=== PATIENT | male | born 1935 | race Caucasian/White ===

== ENCOUNTER 2017-11-16 15:44 | Observation (INO) ==
--- NOTE | 2017-11-16 16:12 | Emergency Department Note ---
Disposition Clinical Impression: New onset atrial fibrillation, Vertigo Chronic kidney disease (CKD) Qualifiers: Chronic kidney disease stage: unspecified stage Qualified Code(s): N18.9 - Chronic kidney disease, unspecified Disposition: Admitted As Inpatient Condition: Good Referrals: Luis Medrano MD [Primary Care Provider] - Forms: ED Satisfaction Letter General Adult HPI - General Chief complaint: ED Dizziness Stated complaint: Lightheaded dizzy Time Seen by Provider: 11/16/17 15:49 Source: patient, EMS Mode of arrival: EMS Limitations: no limitations Nursing Notes Reviewed: Yes Vital Signs Reviewed: Yes - History of Present Illness HPI Narrative: 82-year-old white male who is brought to us by EMS today from a local bar after he experienced an acute onset of very intense vertigo or "room spinning" sensation that lasted approximately 5 minutes. Patient states that he has been managed over the past 6 weeks by his family doctor for the new diagnosis of vertigo and as an outpatient has had MRI imaging, CT imaging, and has been going to physical therapy as well as medications for the vertigo. Patient states he has been having these episodes intermittently that come on suddenly lasting anywhere from 3-5 minutes but they have never been so intense that he could not stand or walk. Patient actually brought a cane so he can have assistance with ambulation when these episodes occur at home to prevent a fall. Patient on arrival is in no acute distress, he is asymptomatic at this time, denies any complaints of associated headaches or visual changes, no focal extremity weakness or numbness, no history of falls trauma, no syncope, no chest pain pressure or heaviness, no shortness of breath, no recent fevers chills cold or cough, no other associated symptoms. Patient states he remained in the bar chair and held his head very still and asked someone to call the ambulance. Patient states by the time the squad arrived his dizziness had completely resolved and he has been asymptomatic since that time. Pain Scale: 0 - Related Data Allergies Allergy/AdvReac Type Severity Reaction Status Date / Time No Known Allergies Allergy Verified 11/16/17 15:55 All systems ED: reviewed and negative except as stated. Review of Systems: As Per HPI Past Medical History - Past Medical History Medical history: Reports: cancer, hyperlipidemia, hypertension, renal disease Psychiatric history: Reports: no psych history - Social History Smoking Status: Never smoker Alcohol use: Reports: occasionally Drug use: Reports: none Physical Exam - General Limitations: no limitations General appearance: alert, in no apparent distress - Head Head exam: atraumatic, normocephalic, normal inspection - Eye Eye exam: Present: normal appearance, PERRL, EOMI - ENT ENT exam: normal exam, normal oropharynx, mucous membranes moist - Neck Neck exam: Present: normal inspection - Chest Chest inspection: Present: normal inspection, symmetric chest wall rise - Respiratory Respiratory exam: Present: normal lung sounds bilaterally. Absent: respiratory distress, wheezes, stridor - Cardiovascular Cardiovascular exam: Present: regular rate, normal rhythm, normal heart sounds - Abdominal Exam Abdominal exam: Present: soft, Non-Tender, normal bowel sounds - Extremities Exam Extremities exam: Present: normal inspection, normal capillary refill. Absent: tenderness, calf tenderness - Back Exam Back exam: Present: normal inspection. Absent: tenderness, CVA tenderness (R), CVA tenderness (L), muscle spasm, paraspinal tenderness - Neurological Exam Neurological exam: Present: alert, oriented X3, CN II-XII intact, normal gait, reflexes normal, other (Focal neurologic deficits on examination. Finger to nose testing bilaterally intact, no pronator drift, strength is good 5 out of 5 equal bilateral upper and lower extremities.). Absent: motor sensory deficit - Psychiatric Psychiatric exam: Present: normal affect, normal mood - Skin Skin exam: Present: warm, dry, intact, normal color Course Course Narrative: Patient is a 82-year-old white male who is brought to us by EMS today for recurrent vertigo. Patient is being worked up by his family doctor and has been experiencing this reportedly for the past 3-4 months it has been worse over the past 6 weeks. Patient states medicine for the vertigo does not help and he now ambulates with a cane at home to prevent falls for when he has these episodes. Patient's episode he experienced a bar prior to arrival has completely resolved and has not recurred during his ED course. Patient has been resting comfortably with stable vital signs at bedside throughout ED course he had no recurrence of dizziness no vomiting no other associated symptoms. Patient's workup up to this point with the exception of his EKG is unremarkable. Patient's EKG shows atrial fibrillation which patient denies any prior history of nasal never had any cardiac evaluation. Patient is on any heart medications no anticoagulants. Patient's daughter was at bedside later on during the ED course and she confirms this as well and states he has never had any heart issues. Patient's lab evaluation, chest x-ray, and CT head are all unremarkable. Patient does have a mild elevation in his serum creatinine which is chronic for him he does see a diesel mechanic construction he states once year for "chronic kidney disease" . Patient has no history her records in our system for reference. His blood pressure has remained stable and clinically I suspect that he is having paroxysmal A. fib which is causing his lightheadedness and dizziness episodes. I feel patient would benefit from hospitalization and seen by cardiology for workup for new onset A. fib. Patient is agreeable with this plan , discussed with the hospitalist who accepted the patient for admission. Vital Signs Temperature 97.9 F 11/16/17 15:53 Pulse Rate 107 11/16/17 15:53 Respiratory Rate 16 11/16/17 15:53 Blood Pressure 153/95 11/16/17 15:53 O2 Sat by Pulse Oximetry 96 11/16/17 15:53 Temperature 97.9 F 11/16/17 15:53 Pulse Rate 88 11/16/17 17:46 Respiratory Rate 18 11/16/17 17:46 Blood Pressure 134/86 11/16/17 17:46 O2 Sat by Pulse Oximetry 99 11/16/17 16:15 Oxygen Delivery Oxygen Delivery Room Air Medical Decision Making - Medical Records Medical records reviewed: Yes I reviewed the patient's medical records. - Lab Data Lab results reviewed: Yes I reviewed the patient's lab results. Result diagrams: 11/16/17 16:40 11/16/17 16:40 Lab Results 11/16/17 11/16/17 11/16/17 Range/Units 16:34 16:40 16:40 WBC 6.6 (4.3-11.1) K/mcL RBC 4.72 (4.19-5.50) M/mcL Hgb 15.3 (12.9-16.9) g/dL Hct 44.9 (37.5-50.1) % MCV 95.1 (83.0-100.0) fL MCH 32.4 (28.0-33.3) pg MCHC 34.1 (31.6-35.5) g/dL RDW 12.9 (11.5-14.5) % Plt Count 169 (140-400) K/mcL MPV 10.3 (9.4-12.4) fL Immature Gran % 0.3 (0-4) % Seg Neutrophils % 70.1 % Lymphocytes % 17.2 % Monocytes % 10.3 % Eosinophils % 1.5 % Basophils % 0.6 % Neutrophils # 4.6 (1.6-8.9) K/mcL Lymphocytes # 1.1 (0.6-4.6) K/mcL Monocytes # 0.7 (0.0-1.3) K/mcL Eosinophils # 0.1 (0.0-0.6) K/mcL Basophils # 0.0 (0.0-0.2) K/mcL PT (9.4-12.1) Seconds INR APTT (26.0-36.0) Seconds Sodium 135 L (136-145) mEq/L Potassium 3.9 (3.5-5.1) mEq/L Chloride 107 (98-107) mEq/L Carbon Dioxide 22 L (23-29) mEq/L BUN 20 (8-23) mg/dL Creatinine 1.52 H (0.70-1.30) mg/dL Est GFR ( Amer) 53 L (> 60) Est GFR (Non-Af Amer) 44 L (> 60) BUN/Creatinine Ratio 13 (6-26) Glucose 105 (70-105) mg/dL Calculated Osmolality 283 (280-300) Calcium 8.7 (8.6-10.3) mg/dL Magnesium 1.8 (1.6-2.6) mg/dL Total Bilirubin 0.5 (0.3-1.0) mg/dL AST 16 (13-39) Units/L ALT 17 (7-52) Units/L Alkaline Phosphatase 62 (34-104) Units/L Troponin I (< 0.04) ng/mL Serum Total Protein 6.5 (6.4-8.9) g/dL Albumin 3.8 (3.5-5.7) g/dL Globulin 2.7 (2.4-3.5) g/dL Albumin/Globulin Ratio 1.4 (1.1-2.2) TSH (0.340-5.600) mcIU/mL Urine Color Yellow (Yellow) Urine Clarity Clear (Clear) Urine pH 5.5 (5.0-8.0) pH Units Ur Specific [place] 1.024 (1.010-1.025) Urine Protein 30 H (Neg-Trace) mg/dL Urine Glucose (UA) Normal (Normal) mg/dL Urine Ketones Negative (Negative) mg/dL Urine Blood Trace H (Negative) Urine Nitrite Negative (Negative) Urine Bilirubin Negative (Negative) Urine Urobilinogen Normal (Normal) mg/dL Ur Leukocyte Esterase Negative (Negative) Urine Microscopic RBC 0-3 (0-3) per hpf Urine Microscopic WBC 0-3 (0-3) per hpf Ur Squamous Epith Cells Moderate H (None-Few) per lpf Urine Bacteria None Seen (None-Few) per hpf Hyaline Casts None Seen (None-Few) per lpf Ur Culture Indicated? NO (NO) 11/16/17 11/16/17 11/16/17 Range/Units 16:40 16:41 16:41 WBC (4.3-11.1) K/mcL RBC (4.19-5.50) M/mcL Hgb (12.9-16.9) g/dL Hct (37.5-50.1) % MCV (83.0-100.0) fL MCH (28.0-33.3) pg MCHC (31.6-35.5) g/dL RDW (11.5-14.5) % Plt Count (140-400) K/mcL MPV (9.4-12.4) fL Immature Gran % (0-4) % Seg Neutrophils % % Lymphocytes % % Monocytes % % Eosinophils % % Basophils % % Neutrophils # (1.6-8.9) K/mcL Lymphocytes # (0.6-4.6) K/mcL Monocytes # (0.0-1.3) K/mcL Eosinophils # (0.0-0.6) K/mcL Basophils # (0.0-0.2) K/mcL PT 11.3 (9.4-12.1) Seconds INR 1.1 APTT 27.0 (26.0-36.0) Seconds Sodium (136-145) mEq/L Potassium (3.5-5.1) mEq/L Chloride (98-107) mEq/L Carbon Dioxide (23-29) mEq/L BUN (8-23) mg/dL Creatinine (0.70-1.30) mg/dL Est GFR ( Amer) (> 60) Est GFR (Non-Af Amer) (> 60) BUN/Creatinine Ratio (6-26) Glucose (70-105) mg/dL Calculated Osmolality (280-300) Calcium (8.6-10.3) mg/dL Magnesium (1.6-2.6) mg/dL Total Bilirubin (0.3-1.0) mg/dL AST (13-39) Units/L ALT (7-52) Units/L Alkaline Phosphatase (34-104) Units/L Troponin I < 0.03 (< 0.04) ng/mL Serum Total Protein (6.4-8.9) g/dL Albumin (3.5-5.7) g/dL Globulin (2.4-3.5) g/dL Albumin/Globulin Ratio (1.1-2.2) TSH 1.372 (0.340-5.600) mcIU/mL Urine Color (Yellow) Urine Clarity (Clear) Urine pH (5.0-8.0) pH Units Ur Specific [place] (1.010-1.025) Urine Protein (Neg-Trace) mg/dL Urine Glucose (UA) (Normal) mg/dL Urine Ketones (Negative) mg/dL Urine Blood (Negative) Urine Nitrite (Negative) Urine Bilirubin (Negative) Urine Urobilinogen (Normal) mg/dL Ur Leukocyte Esterase (Negative) Urine Microscopic RBC (0-3) per hpf Urine Microscopic WBC (0-3) per hpf Ur Squamous Epith Cells (None-Few) per lpf Urine Bacteria (None-Few) per hpf Hyaline Casts (None-Few) per lpf Ur Culture Indicated? (NO) - EKG Data EKG #1 EKG attestation: Yes I reviewed and interpreted this EKG. EKG results narrative: EKG was interpreted by myself without benefit of formal cardiology interpretation showing atrial fibrillation that is rate controlled at a rate of 94 bpm, no acute ST or T-wave changes are appreciated. Patient has no old EKG for comparison.
[2017-11-16] MEDS ORDERED: 0.9 % Sodium Chloride 1,000 ML ONE (16:16)
[2017-11-16] MEDS: 0.9 % Sodium Chloride 1,000 ML IVC SCH ×2 (16:26→22:37)
[2017-11-16 16:47] LABS: Bilirubin,Urine Negative (Negative); Blood,Urine Trace (Negative); Clarity,Urine Clear (Clear); Color,Urine Yellow (Yellow); Glucose,Urine (UA) Normal (Normal); Ketones,Urine Negative (Negative); Leukocyte Esterase,Urine Negative (Negative); Nitrite,Urine Negative (Negative); PH,Urine 5.5 pH Units (5.0-8.0); Protein,Urine 30 mg/dL (Neg-Trace); Specific Gravity,Urine 1.024 (1.010-1.025); Urobilinogen,Urine Normal (Normal)
[2017-11-16 16:49] LABS: Bacteria,Urine None Seen per hpf (None-Few); Hyaline Casts,Urine None Seen per lpf (None-Few); RBC,Urine 0-3 per hpf (0-3); Squamous Epithelial Cell,Urine Moderate per lpf (None-Few); WBC,Urine 0-3 per hpf (0-3)
[2017-11-16 16:55] LABS: Basophils % 0.6 %; Eosinophils # 0.1 K/mcL (0.0-0.6); Eosinophils % 1.5 %; Hematocrit 44.9 % (37.5-50.1); Hemoglobin 15.3 g/dL (12.9-16.9); Immature Granulocytes % 0.3 % (0-4); Lymphocytes # 1.1 K/mcL (0.6-4.6); Lymphocytes % 17.2 %; Mean Corpuscular HGB Conc 34.1 g/dL (31.6-35.5); Mean Corpuscular Hemoglobin 32.4 pg (28.0-33.3); Mean Corpuscular Volume 95.1 fL (83.0-100.0); Mean Platelet Volume 10.3 fL (9.4-12.4); Monocytes # 0.7 K/mcL (0.0-1.3); Monocytes % 10.3 %; Neutrophils # 4.6 K/mcL (1.6-8.9); Platelet Count 169 K/mcL (140-400); Red Blood Count 4.72 M/mcL (4.19-5.50); Red Cell Distribution Width 12.9 % (11.5-14.5); Segmented Neutrophils % 70.1 %
[2017-11-16 17:00] LABS: INR 1.1; Prothrombin Time 11.3 Seconds (9.4-12.1)
[2017-11-16 17:16] LABS: Albumin 3.8 g/dL (3.5-5.7); Albumin/Globulin Ratio 1.4 (1.1-2.2); Bilirubin,Total 0.5 mg/dL (0.3-1.0); Calcium 8.7 mg/dL (8.6-10.3); Globulin 2.7 g/dL (2.4-3.5); Potassium 3.9 mEq/L (3.5-5.1); Total Protein 6.5 g/dL (6.4-8.9)
[2017-11-16 17:29] LABS: Magnesium 1.8 mg/dL (1.6-2.6)
--- NOTE | 2017-11-16 20:05 | Internal Med History&Physical ---
Date of Encounter: 11/16/17 Time of Encounter: 20:03 Assessment and Plan (1) HTN (hypertension) Current visit: Yes Status: Chronic Chronic we will resume home medication Qualifiers: Hypertension type: essential hypertension Qualified Code(s): I10 - Essential (primary) hypertension (2) Hyperlipidemia Current visit: Yes Status: Chronic Chronic resume her medication recheck in a.m. Qualifiers: Hyperlipidemia type: pure hypercholesterolemia Qualified Code(s): E78.00 - Pure hypercholesterolemia, unspecified; E78.0 - Pure hypercholesterolemia (3) Chronic kidney disease (CKD) Current visit: Yes Status: Chronic Chronic cracking in his lower than his baseline Qualifiers: Chronic kidney disease stage: stage 2 (mild) Qualified Code(s): N18.2 - Chronic kidney disease, stage 2 (mild) (4) New onset atrial fibrillation Current visit: Yes Status: Acute Patient is asymptomatic so is unclear if its new onset atrial fibrillation, paroxysmal or chronic atrial fib cardiology consult for further evaluation . rate is controlled (5) Vertigo Current visit: Yes Status: Acute Regarding vertigo and MRI and carotid is unremarkable NEUROLOGY MAY NEED ENT EVALUATION Internal Medicine - H&P: HPI Chief complaint: virtigo Admitted From: Emergency Dept Plans for Post Hospital Care: Home History of present illness: Mr. Santamaria is a 82 year old male Patient with history of high cholesterol, hypertension, ckd , patient has been being treated by primary physician for vertigo for about 2 months or so he has had MRI of the head which was unremarkable also carotid duplex September 26 which was unremarkable patient has a recurrent episode of vertigo Today he was at local [facility] intensive vertigo room spinning [facility] was called but symptoms has already resolved when the EMS arrived he was brought to the emergency room emergency room EKG showed atrial fibrillation rate was 94 patient unaware of palpitation no history of atrial fibrillation. Patient has hearing aids but no ringing in the ear no other symptoms associated with the vertigo no nausea or vomiting and no recent ear infection. He had a CT of the head done in the emergency room which was negative he is been admitted for further evaluation . I believe the atrial fibrillation is unrelated to virtigo will consult neurology for further evaluation and cardiology for new-onset atrial fib may need ENT evaluation for detail evaluation. Past Med Surg Social Fam HX - Past Medical History Medical history: cancer, hyperlipidemia, hypertension, renal disease Psychiatric history: no psych history - Social History Smoking Status: Never smoker Alcohol use: occasionally Drug use: none Internal Medicine - H&P: Meds Ergocalciferol (VITAMIN D2) [Vitamin D2] 50,000 unit PO TH 11/16/17 [History] Lovastatin [Lovastatin] 40 mg PO HS 11/16/17 [History] Omeprazole [PriLOSEC] 40 mg PO DAILY 11/16/17 [History] 3 Allergy/AdvReac Type Severity Reaction Status Date / Time No Known Allergies Allergy Verified 11/16/17 15:55 All Systems PM: A 10-system review of systems was performed and is negative for pertinent findings except as documented above in the HPI. - Constitutional Constitutional: no chills, no fever(s), no night sweats - EENT Eyes: no change in vision, no discharge, no pain, no photophobia Ears: decreased hearing, ear pain, tinnitus, other Nose, mouth and throat: no dysphagia, no nasal discharge, no neck pain, no sore throat - Cardiovascular Cardiovascular ROS IM: irregular heart rhythm - Respiratory Respiratory: no cough, no dyspnea, no wheezing, no excessive phlegm production - Gastrointestinal Gastrointestinal: no abdominal pain, no diarrhea, no hematemesis, no hematochezia, no melena, no nausea, no vomiting - Musculoskeletal Musculoskeletal ROS IM: no numbness, no tingling - Integumentary Integumentary IM: no rash, no unusual bruising - Constitutional Vitals: Temp Pulse Resp BP Pulse Ox 97.6 F 86 16 155/86 96 11/16/17 19:23 11/16/17 19:23 11/16/17 19:23 11/16/17 19:23 11/16/17 19:23 - Head Head exam: Present: atraumatic, normocephalic - Eye Eye exam: Present: PERRL, conjuntiva pink, sclera anicteric Pupils: Present: PERRL - Neck Neck exam general surgery: Present: supple, trachea midline. Absent: lymphadenopathy - Respiratory Respiratory exam: Present: CTAB. Absent: accessory muscle use, rales, rhonchi, wheezes - Cardiovascular Cardiovascular exam: Present: RRR, +S1, +S2. Absent: diastolic murmur, gallop, rubs, systolic murmur - GI/Abdominal GI/Abdominal exam: Present: normal bowel sounds, soft, no peritoneal signs. Absent: distended, tenderness - Extremities Exam Extremities exam: Present: warm, radial pulses palpable and symmetrical. Absent : calf tenderness, cyanotic, pedal edema - Neurological Exam Neurological exam: Present: CN II-XII intact, oriented X3, no focal deficits. Absent: pronater drift, facial droop, speech deficit - Skin Skin exam: Present: dry, intact Internal Med - H&P Results - Labs CBC & Chem 7: 11/16/17 16:40 11/16/17 16:40
[2017-11-16] MEDS ORDERED: Acetaminophen 325 MG TABLET PO PRN (20:15)
[2017-11-16] MEDS ORDERED: Naloxone 0.4 MG/ML INJ IVP PRN (20:15)
[2017-11-16] MEDS ORDERED: traMADol 50 MG TABLET PO PRN (20:15)
[2017-11-17] MEDS: 0.9 % Sodium Chloride 1,000 ML IVC SCH ×4 (02:16→21:27)
[2017-11-17 05:00] LABS: Chol/HDL Ratio 2.7 (0-4.9); Magnesium 1.8 mg/dL (1.6-2.6)
--- NOTE | 2017-11-17 10:22 | Neurology - Consult Note ---
Date of Encounter: 11/17/17 Time of Encounter: 10:19 Assessment and Plan (1) Vertigo Current Visit: Yes Status: Acute Patient has lightheadedness and spinning feeling upon standing up. Orthostatic vital signs performed reveal a lying blood pressure 145/100 and a standing blood pressure of 119/71 indicative of orthostatic hypotension. This is consistent with the patient reporting low oral intake. Would recommend IV fluid hydration and encourage the patient to stay well-hydrated. patient does have new onset atrial fibrillation that is being evaluated by cardiology however I do not feel that this is the cause of the patient's symptoms. CT of the head is unremarkable for any intracranial pathology, no indication for further neuroimaging. Patient has a [id number] of at least 2 and possibly 3 given his reported history of hypertension that is no longer being treated which would make him a candidate for anticoagulation which we would recommend to prevent cardioembolic stroke. We will defer final decision to hospitalization and cardiology team. History of Present Illness Chief complaint: Dizziness HPI: Mr. Santamaria is a 82 year old male with history of chronic kidney disease presented with symptoms of dizziness. He describes a severe episode of feeling the room is spinning around him. This has been occurring every 3-4 days since first starting in August. The episode yesterday was extremely severe enough that the squad was called. He states these last several seconds to a couple minutes. He states he mostly triggered by standing up from a seated position. He denies any loss of consciousness or falls. He states he has chronic headaches that he has had for years and there is no change in his headaches. He denies any vision or hearing changes recently. He reports that he drinks 16 ounces of fluid in the morning and in the evening and has been told that he should not take in more fluids. Past Med Surg Social Fam HX - Past Medical History Medical history: cancer, hyperlipidemia, hypertension, renal disease Psychiatric history: no psych history - Social History Smoking Status: Never smoker Alcohol use: occasionally Drug use: none - Family History Father Living Status: Age at : 62 Cause of : cerebral hemorrhage Mother Living Status: Hx Family Cancer: Yes (breast cancer) Hx Family Neurologic Disorders: Yes (Stroke) Medications and Allergies Ergocalciferol (VITAMIN D2) [Vitamin D2] 50,000 unit PO TH 11/16/17 [History] Lovastatin [Lovastatin] 40 mg PO HS 11/16/17 [History] Omeprazole [PriLOSEC] 40 mg PO DAILY 11/16/17 [History] 3 Allergy/AdvReac Type Severity Reaction Status Date / Time No Known Allergies Allergy Verified 11/16/17 15:55 All Systems: A 10-system review of systems was performed and is negative for pertinent findings except as documented above in the HPI. Physical Examination - Vital Signs Vital Signs: Initial Vital Signs Temp Pulse Resp BP Pulse Ox 97.9 F 107 16 153/95 96 11/16/17 15:53 11/16/17 15:53 11/16/17 15:53 11/16/17 15:53 11/16/17 15:53 - Exam Exam: Ear canals clear bilaterally. No tympanic membrane erythema or effusion noted bilaterally - Constitutional General appearance: comfortable - Neurologic Sensorimotor examination: intact Detailed motor examination: grossly full strength in all extremities Motor examination - right side: 5/5: deltoids, biceps, triceps, wrist flexion, wrist extension, pulmonary nurse practitioner, hip flexors, tibialis Anterior, quadriceps, toe extension (EHL), plantarflexion Motor examination - left side: 5/5: deltoids, biceps, triceps, wrist flexion, wrist extension, hip flexors, pulmonary nurse practitioner, quadriceps, tibialis Anterior, toe extension (EHL), plantarflexion Detailed sensory examination: intact Reflexes: Biceps: 2+, Triceps: 2+, Brachioradialis: 2+, Patella: 2+, Achilles: 2 + Mental Status Examination: awake, alert, oriented to person, oriented to place, oriented to time, follows commands appropriately, answers questions appropriately, no agnosia, no aphasia, no aproxia Cranial nerve examination: PERRL, EOMI, visual castellanos intact, sensory to face intact, mastication intact, no facial asymmetry is present, no dysarthria, soft palate elevates bilaterally upon phonation, flexes SCM and trapezius muscles symmetrically with full power, tongue protrudes midline, no atrophy or facial fasiculations present Cerebellar examination: performs finger to nose and heel to carbajal symmetrically without ataxia Results - Laboratory Findings CBC and BMP: 11/16/17 16:40 11/16/17 16:40 Abnormal lab findings: Abnormal lab results Sodium 135 mEq/L (136-145) L 11/16/17 16:40 Carbon Dioxide 22 mEq/L (23-29) L 11/16/17 16:40 Creatinine 1.52 mg/dL (0.70-1.30) H 11/16/17 16:40 Est GFR ( Amer) 53 (> 60) L 11/16/17 16:40 Est GFR (Non-Af Amer) 44 (> 60) L 11/16/17 16:40 Urine Protein 30 mg/dL (Neg-Trace) H 11/16/17 16:34 Urine Blood Trace (Negative) H 11/16/17 16:34 Ur Squamous Epith Cells Moderate per lpf (None-Few) H 11/16/17 16:34 Consult Discharge Plan - Plan Referrals: Luis Medrano MD [Primary Care Provider] -
--- NOTE | 2017-11-17 10:40 | Cardiology Consult Note ---
Date of Encounter: 11/17/17 Time of Encounter: 10:33 Assessment and Plan (1) New onset atrial fibrillation Current Visit: Yes Status: Acute Patient with cc of dizziness/room spinning. Asymptomatic at time of ECG in the ED which showed rate-controlled atrial fibrillation. -Unclear whether the atrial dysrhythmia is contributing to the sensation of dizziness as patient denying palpitations, heart racing, SOB. In addition, patient has positive orthostatics (blood pressure 145/100 lying and standing blood pressure of 119/71). Positive orthostatics in conjunction with history of decreased fluid PO intake AND copious alcohol consumption seem to suggest etiology of dizziness related to fluid deficit as opposed to symptoms secondary to rate-controlled atrial fibrillation. -Patient currently receiving meclizine. States his dizziness had already resolved prior to the first dose of this medication in the ED. -CHADs-VASC of at least 2- neurology recommending anticoagulation to prevent cardioembolic stroke. -FU echocardiogram. -Patient with history of heavy drinking and potential tremor in September. Will order CIWA scale. -Patient consistently hypertensive during hospitalization with labile heart rates, will start Toprol 25 mg daily. -Will discuss with Dr. Aguilar the need for rhythm control and anticoagulation. (2) Vertigo Current Visit: Yes Status: Acute Patient's history and physical exam seem to suggest orthostatic hypotension. -Neurology following. (3) HTN (hypertension) Current Visit: Yes Status: Chronic Patient hypertensive in the hospital. Also positive orthostatic hypotension. -Managment per primary team. Qualifiers: Hypertension type: essential hypertension Qualified Code(s): I10 - Essential (primary) hypertension Discussion w patient/family: The assessment and plan as outlined above was discussed with the patient and/or family members who expressed understanding and agreement. All questions were answered. Thank you for involving us in the care of your patient. Please call with any questions. History of Present Illness Consult date: 11/16/17 Requesting physician: Enmanuel Ozuna Consult reason: new onset atrial fibrillation Chief complaint: dizziness History of present illness: Mr. Santamaria is a 82 year old male with past medical history of chronic kidney disease who presented to on 11/16/2017 with symptoms of dizziness. Per patient, he was drinking beer at the bar, at which time he described having a severe episode of feeling that the room was spinning around him. He states he has had this feeling before with a frequency of approximately once per week since around 2016. Patient stated that during the episode yesterday evening, his buddies at the bar walked down to the fire department and got a squad for him. The patient is a difficult historian, however, his stories seem to suggest that most of these episodes are triggered by standing up from a seated position. He does report decreased oral intake of fluids as well as a 4-5 day per week history of alcohol consumption. He says his symptoms are usually easily resolved by sitting still and closing his eyes. He also reports episodes of blurry vision which he has maybe once per year. He denies any loss of consciousness or falls. He does report a remote history of headaches, however, he denies any recent headaches. Patient also reports being giving a medication called primidone for a tremor in September. He states this medication exacerbated his frequency and severity of episodes of dizziness. The episodes brought on by primidone are similar to that he experienced yesterday evening. He denies shortness of breath, chest pain , chest pressure, or palpitations. He denies nausea, vomiting, or diarrhea. He denies hematochezia or melena. He denies dysuria or hematuria. Past Med Surg Social Fam HX - Past Medical History Attestation: Yes The following information was validated with the patient. Source: patient, old records reviewed Medical history: cancer, hyperlipidemia, hypertension, renal disease Psychiatric history: no psych history - Social History Smoking Status: Never smoker Alcohol use: occasionally Drug use: none - Family History Father Living Status: Age at : 62 Cause of : cerebral hemorrhage Mother Living Status: Hx Family Cancer: Yes (breast cancer) Hx Family Neurologic Disorders: Yes (Stroke) Medications and Allergies Ergocalciferol (VITAMIN D2) [Vitamin D2] 50,000 unit PO TH 11/16/17 [History] Lovastatin [Lovastatin] 40 mg PO HS 11/16/17 [History] Omeprazole [PriLOSEC] 40 mg PO DAILY 11/16/17 [History] 3 Allergy/AdvReac Type Severity Reaction Status Date / Time No Known Allergies Allergy Verified 11/16/17 15:55 All Systems Review: A 10-system review of systems was performed and is negative for pertinent findings except as documented above in the HPI. - Constitutional Constitutional: no anorexia, no daytime sleepiness, no fatigue, no frequent falls, no headache(s), no lethargy, no weight gain, no weight loss - EENT Eyes: blurred vision (remote) - Cardiovascular Cardiovascular: lightheadedness, no chest pain at rest, no chest pain with exertion, no claudication, no diaphoresis, no dyspnea at rest, no dyspnea on exertion, no irregular heart rhythm, no radiating jaw, neck or arm pain, no leg edema, no orthopnea, no palpitations, no paroxysmal nocturnal dyspnea, no rapid heart rate, no slow heart rate - Respiratory Respiratory: no cough, no dyspnea - Gastrointestinal Gastrointestinal: no abdominal pain, no coffee ground emesis, no constipation, no diarrhea, no hematemesis, no hematochezia, no melena - Genitourinary Genitourinary: no dysuria, no hematuria - Musculoskeletal Musculoskeletal: no abnormal gait, no muscle cramps, no muscle weakness - Neurological Neurological: dizziness, no abnormal speech, no focal weakness, no loss of vision, no memory loss, no numbness, no syncope, no tingling Physical Examination Vital Signs, Last 4 Hours Temp Pulse Resp BP Pulse Ox 11/17/17 08:04 97.9 F 89 17 161/88 94 11/17/17 08:00 94 General: Conversant, No Apparent Distress HEENT: Atraumatic, Normocephaly, Mucus Membranes Moist Neck: No JVD Cardiac: No Murmur, Other (irregular, HR in 80s-90s) Lungs: Normal Breath Sounds, No Wheeze, Rales, Rhonchi Neuro: Alert and responsive, No focal deficits noted Abdomen: Soft, Non-Tender Skin: No rashes noted on visualized skin Musculoskeletal: No Chest Wall Tenderness Extremities: No Clubbing, No Cyanosis, No Edema, Normal Pulses Results 11/16/17 16:40 11/16/17 16:40 Lab Results 11/16/17 11/17/17 11/17/17 20:35 04:06 04:06 Magnesium 1.8 Troponin I < 0.03 0.03 Consult Discharge Plan - Plan Referrals: Luis Medrano MD [Primary Care Provider] -
[2017-11-17] MEDS: Metoprolol XL (24 HR) Succ 25 MG TAB.ER.24H PO SCH (12:15)
--- NOTE | 2017-11-17 12:19 | Electrocardiograph Report ---
[place] [id number] Test Date: 2017-11-16 Pat Name: Nathaniel Santamaria Department: 102 Room: 3B43 Gender: M [employer] Interleafer: Msc : [id number] Requested By: Marlene Carlson Order Number: [id number] Reading MD: Herrera Schuler DO Measurements Intervals [place] Rate: 94 P: IN: 0 QRS: 18 QRSD: 94 T: 28 QT: 324 QTc: 376 Interpretive Statements ATRIAL FIBRILLATION Electronically Signed On 11-17-2017 12:18:21 EST by Herrera Schuler DO
[2017-11-17] MEDS ORDERED: *HR* LORazepam 2 MG/ML VIAL IVP PRN ×3 (15:11)
--- NOTE | 2017-11-17 15:14 | Internal Med Progress Note ---
Date of Encounter: 11/17/17 Time of Encounter: 12:30 - Assessment and plan (1) Atrial fibrillation Current Visit: Yes Status: Acute Assessment and plan: Found to be in A. fib on arrival. No known history of A. fib. Denies sleep apnea, does consume EtOH. Rate controlled. Defer anticoagulation to cardiology. Echo pending Qualifiers: Atrial fibrillation type: paroxysmal Qualified Code(s): I48.0 - Paroxysmal atrial fibrillation (2) Alcohol abuse Current Visit: Yes Status: Acute Assessment and plan: daily drinker. Monitor with CIWA (3) Orthostatic hypotension Current Visit: Yes Status: Acute Assessment and plan: Symptomatically with lightheadedness and spinning feeling upon standing. Head CT nonacute. Orthostatic BPs with lying blood pressure 145/102 and standing BP of 119/71. Evaluated by neurology who recommended IV hydration for now. (4) Chronic kidney disease (CKD) Current Visit: Yes Status: Chronic Assessment and plan: per hx. Renal function appears better than baseline. Avoid nephrotoxic agents as possible. Intermittently monitor renal function. Qualifiers: Chronic kidney disease stage: stage 2 (mild) Qualified Code(s): N18.2 - Chronic kidney disease, stage 2 (mild) (5) DVT prophylaxis Current Visit: Yes Status: Acute Assessment and plan: heparin - Subjective Interval history: Seen and examined at bedside. Patient is new to me. Information obtained from chart review and patient report. Patient says he feels okay and has no complaints. No chest pain or shortness of breath. Says he has feelings of dizziness when he goes from a sitting to standing position. No lightheadedness or dizziness at rest. No palpitations. - Constitutional Vitals: Temp Pulse Resp BP Pulse Ox 97.7 F 83 17 144/91 94 11/17/17 15:07 11/17/17 15:07 11/17/17 15:07 11/17/17 15:07 11/17/17 15:07 General appearance: Present: A&O X 3 - Head Head exam: Present: atraumatic, normocephalic - Eye Eye exam: Present: PERRL, conjuntiva pink, sclera anicteric Pupils: Present: PERRL - Neck Neck exam general surgery: Present: supple, trachea midline. Absent: lymphadenopathy - Respiratory Respiratory exam: Present: CTAB. Absent: accessory muscle use, rales, rhonchi, wheezes - Cardiovascular Cardiovascular exam: Present: irregular rhythm, +S1, +S2. Absent: diastolic murmur, gallop, rubs, systolic murmur - GI/Abdominal GI/Abdominal exam: Present: normal bowel sounds, soft, no peritoneal signs. Absent: distended, tenderness - Extremities Exam Extremities exam: Present: warm, radial pulses palpable and symmetrical. Absent : calf tenderness, cyanotic, pedal edema - Neurological Exam Neurological exam: Present: CN II-XII intact, oriented X3, no focal deficits. Absent: pronater drift, facial droop, speech deficit - Skin Skin exam: Present: dry, intact Internal Medicine: Result - Labs CBC & Chem 7: 11/16/17 16:40 11/16/17 16:40 Labs: Cardiac Enzymes 11/16/17 11/17/17 11/17/17 Range/Units 20:35 04:06 12:09 Troponin I < 0.03 0.03 0.03 (< 0.04) ng/mL - ABG Interpretation ABG results: PT/INR, D-dimer PT 11.3 Seconds (9.4-12.1) 11/16/17 16:41 Consult Discharge Plan - Plan Referrals: Luis Medrano MD [Primary Care Provider] -
[2017-11-17] MEDS: Vitamin B Complex/Vit C/Vit E 1 EACH TABLET PO SCH (15:37)
[2017-11-17] MEDS: *HR* Heparin 5,000 UNIT/ML VIAL SQ SCH (21:28)
[2017-11-18 05:12] LABS: Hemoglobin 14.6 g/dL (12.9-16.9); Mean Corpuscular Hemoglobin 32.4 pg (28.0-33.3); Mean Corpuscular Volume 95.3 fL (83.0-100.0); Mean Platelet Volume 10.7 fL (9.4-12.4); Platelet Count 160 K/mcL (140-400); Red Blood Count 4.51 M/mcL (4.19-5.50)
[2017-11-18 05:22] LABS: Calcium 8.6 mg/dL (8.6-10.3)
[2017-11-18] MEDS: *HR* Heparin 5,000 UNIT/ML VIAL SQ SCH ×2 (06:20→14:04)
[2017-11-18] MEDS: Metoprolol XL (24 HR) Succ 25 MG TAB.ER.24H PO SCH (08:17)
[2017-11-18] MEDS: Vitamin B Complex/Vit C/Vit E 1 EACH TABLET PO SCH (08:17)
[2017-11-18 11:44] VITALS: BP 125/82
--- NOTE | 2017-11-18 14:28 | Discharge Summary ---
Date of Encounter: 11/18/17 Time of Encounter: 14:23 - Discharge Diagnosis (1) Atrial fibrillation Priority: Primary Status: Acute Comments: found to be in A. fib on arrival. No known history of A. fib. Denies sleep apnea, does consume EtOH. TTE with EF 55%, moderately dilated left atrium. Rate controlled. Evaluated by Cardiology who recommended Xarelto for anticoagulation and BB for rate control. Follow-up with cardiology outpatient. Qualifiers: Atrial fibrillation type: paroxysmal Qualified Code(s): I48.0 - Paroxysmal atrial fibrillation (2) Alcohol abuse Priority: Primary Status: Acute Comments: Daily drinker. Monitored with CIWA while inpatient. Cessation advised as this can be contributing to A. fib however alcohol cessation unlikely. (3) Orthostatic hypotension Priority: Primary Status: Acute Comments: Symptomatic with lightheadedness and spinning sensation upon standing. Head CT non-acute. Recent bilateral carotid Dopplers without stenotic plaque. Evidence of orthostatic hypotension with a drop in SBP from 145 laying to SBP 119 standing. Symptoms resolved with IV fluids, and encouraging adequate oral hydration. (4) Chronic kidney disease (CKD) Priority: Secondary Status: Chronic Comments: per hx. Renal function appears better than baseline. Can follow up with nephrology outpatient. Qualifiers: Chronic kidney disease stage: stage 2 (mild) Qualified Code(s): N18.2 - Chronic kidney disease, stage 2 (mild) - Discharge Medications Prescriptions: Metoprolol Succinate [Toprol Xl] 25 mg PO DAILY #30 tab.er.24h Rivaroxaban [Xarelto] 20 mg PO DAILY #30 tablet Home Medications: Ergocalciferol (VITAMIN D2) [Vitamin D2] 50,000 unit PO TH 11/16/17 [History] Lovastatin 40 mg PO HS 11/16/17 [History] Omeprazole [PriLOSEC] 40 mg PO DAILY 11/16/17 [History] Metoprolol Succinate [Toprol Xl] 25 mg PO DAILY #30 tab.er.24h 11/18/17 [Rx] Rivaroxaban [Xarelto] 20 mg PO DAILY #30 tablet 11/18/17 [Rx] Allergies/Adverse Reactions: 3 Allergy/AdvReac Type Severity Reaction Status Date / Time No Known Allergies Allergy Verified 11/16/17 15:55 Procedures/tests Complete & Pending: Procedures Performed prior 72 hours Category Date Time Status EV echocardiogram Routine Y 11/17/17 20:17 Completed Date of admission: 11/16/17 18:07 Primary care physician: Luis Medrano MD Consults: 11/16/17 20:16 Consult to Physician [CONS] Routine Consulting Provider: Marty Aguilar Reason for Consult: new onset atrial fib Time Notified: 20:17 Call Completed: No 11/16/17 20:18 Consult to ENT [CONS] Routine Consulting Provider: ENT Kirsten Reason for Consult: recurrent virtigo Time Notified: 20:18 Call Completed: No Consult to Neurology [CONS] Routine Consulting Provider: Neurology [facility] Reason for Consult: recurrent virtigo Time Notified: 20:18 Call Completed: No Discharging clinician: Roberta Hernandez Anticipated date of discharge: 11/18/17 - Patient Status Disposition: Home, Self-Care Condition: Good Functional capacity at discharge: independent ambulation Overall status at discharge: patient is not back to baseline - Discharge Instructions Instructions: Metoprolol (By mouth), Rivaroxaban (By mouth), Atrial Fibrillation (DC), Alcohol Dependence (GEN) Follow Up With: Luis Medrano MD [Primary Care Provider] - (Please call for follow-up appointment within 1-2 weeks) Marty Aguilar MD [Partnered Physician] - (Please call office for appointment in 2 weeks if you have not heard from them) - Diet and Activity Activity: increase activity as tolerated Diet: advance to your usual diet Interval History: Seen and examined at bedside; says he feels better and would like to discharge home today. Denies chest pain, no shortness of breath or palpitations. No lightheadedness, dizziness or vertigo. Discussed with him at length the importance of alcohol cessation especially while on anticoagulation. He verbalized understanding. Daughter at bedside and updated. Hospital course: See assessment and plan for hospital course - Time Spent with Patient Total time spent providing and/or coordinating discharge services: - Constitutional Vitals: Temp Pulse Resp BP Pulse Ox 98.0 F 82 18 125/82 95 11/18/17 11:43 11/18/17 11:43 11/18/17 11:43 11/18/17 11:43 11/18/17 11:43 General appearance: Present: A&O X 3 - Head Head exam: Present: atraumatic, normocephalic - Eye Eye exam: Present: PERRL, conjuntiva pink, sclera anicteric Pupils: Present: PERRL - Neck Neck exam general surgery: Present: supple, trachea midline. Absent: lymphadenopathy - Respiratory Respiratory exam: Present: CTAB. Absent: accessory muscle use, rales, rhonchi, wheezes - Cardiovascular Cardiovascular exam: Present: irregular rhythm, +S1, +S2. Absent: diastolic murmur, gallop, rubs, systolic murmur - GI/Abdominal GI/Abdominal exam: Present: normal bowel sounds, soft, no peritoneal signs. Absent: distended, tenderness - Extremities Exam Extremities exam: Present: warm, radial pulses palpable and symmetrical. Absent : calf tenderness, cyanotic, pedal edema - Neurological Exam Neurological exam: Present: CN II-XII intact, oriented X3, no focal deficits. Absent: pronater drift, facial droop, speech deficit - Skin Skin exam: Present: dry, intact
[2017-11-18] MEDS ORDERED: *HR* Rivaroxaban 10 MG TABLET PO SCH (15:00)
== END 2017-11-18 16:00 | disposition home or self-care (01) ==
LOC: 3BNU 15:44 → EMEROO 15:44 → 3BNU 18:55
PROVIDERS: ADMIT Nurse Practitioner; ATTEND Registered Nurse

== ENCOUNTER 2021-09-28 14:02 | Observation (INO) ==
[2021-09-28 14:43] LABS: Red Blood Count 4.07 M/mcL (4.19-5.50)
[2021-09-28 14:45] LABS: Eosinophils # 0.2 K/mcL (0.0-0.6); Hematocrit 39.6 % (37.5-50.1); Hemoglobin 13.4 g/dL (12.9-16.9); Immature Platelets 2.7 % (1.1-6.1); Mean Corpuscular HGB Conc 33.8 g/dL (31.6-35.5); Mean Corpuscular Hemoglobin 32.9 pg (28.0-33.3); Mean Corpuscular Volume 97.3 fL (83.0-100.0); Mean Platelet Volume 10.2 fL (9.4-12.4); Platelet Count 125 K/mcL (140-400); Red Cell Distribution Width 13.2 % (11.5-14.5); White Blood Count 4.4 K/mcL (4.3-11.1)
[2021-09-28 14:59] LABS: Albumin 3.9 g/dL (3.5-5.7); Albumin/Globulin Ratio 1.3 (1.1-2.2); Bilirubin,Total 0.7 mg/dL (0.3-1.0); Calcium 7.5 mg/dL (8.6-10.3); Globulin 3.1 g/dL (2.4-3.5); Potassium 4.1 mEq/L (3.5-5.1)
[2021-09-28 15:04] LABS: Lymphocytes # 0.7 K/mcL (0.6-4.6); Monocytes # 0.8 K/mcL (0.0-1.3); Neutrophils # 2.7 K/mcL (1.6-8.9); Platelet Estimate Normal (Normal)
[2021-09-28] MEDS ORDERED: Naloxone 0.4 MG/ML INJ IVP PRN (15:54)
[2021-09-28] MEDS ORDERED: Acetaminophen 325 MG TABLET PO PRN (15:54)
[2021-09-28] MEDS ORDERED: *HR* Metoprolol 5 MG/5 ML VIAL IVP PRN (15:59)
[2021-09-28 16:01] LABS: Influenza A PCR Negative (Negative); Influenza B PCR Negative (Negative); Resp. Syncytial Virus PCR Negative (Negative)
[2021-09-28 16:02] LABS: SARS-CoV-2 by PCR (In House) Negative (Negative)
[2021-09-28] MEDS: cefTRIAXone 1,000 MG in 0.9 % Sodium Chloride Mini Bag 100 ML IVPB SCH (16:09)
[2021-09-28] MEDS: 0.9 % Sodium Chloride 1,000 ML IVC SCH (16:09)
[2021-09-28] MEDS: Carbidopa/Levodopa 25/100 TABLET PO SCH (17:56)
[2021-09-28] MEDS: *HR* Heparin 5,000 UNIT/ML VIAL SQ SCH (17:56)
[2021-09-29] MEDS: Carbidopa/Levodopa 25/100 TABLET PO SCH ×4 (00:02→19:45)
[2021-09-29 02:51] LABS: Red Cell Distribution Width 13.4 % (11.5-14.5)
[2021-09-29 02:53] LABS: Basophils % 0.7 %; Eosinophils # 0.3 K/mcL (0.0-0.6); Hematocrit 37.6 % (37.5-50.1); Hemoglobin 12.5 g/dL (12.9-16.9); Immature Granulocytes % 0.4 % (0-4); Immature Platelets 3.6 % (1.1-6.1); Lymphocytes # 0.6 K/mcL (0.6-4.6); Lymphocytes % 12.4 %; Mean Corpuscular HGB Conc 33.2 g/dL (31.6-35.5); Mean Corpuscular Hemoglobin 32.8 pg (28.0-33.3); Mean Corpuscular Volume 98.7 fL (83.0-100.0); Mean Platelet Volume 10.3 fL (9.4-12.4); Monocytes # 0.9 K/mcL (0.0-1.3); Monocytes % 19.5 %; Neutrophils # 2.8 K/mcL (1.6-8.9); Platelet Count 123 K/mcL (140-400); Red Blood Count 3.81 M/mcL (4.19-5.50); White Blood Count 4.5 K/mcL (4.3-11.1)
[2021-09-29 03:27] LABS: Alanine Aminotransferase < 3 Units/L (7-52); Albumin 3.5 g/dL (3.5-5.7); Albumin/Globulin Ratio 1.2 (1.1-2.2); Alkaline Phosphatase 57 Units/L (34-104); Aspartate Amino Transferase 18 Units/L (13-39); BUN/Creatinine Ratio 16 (6-26); Bilirubin,Total 0.5 mg/dL (0.3-1.0); Blood Urea Nitrogen 26 mg/dL (8-23); Carbon Dioxide 23 mEq/L (23-29); Chloride 111 mEq/L (98-107); Globulin 2.9 g/dL (2.4-3.5); Glucose 117 mg/dL (70-105); Osmolality,Calculated 296 (280-300); Potassium 3.7 mEq/L (3.5-5.1); Sodium 140 mEq/L (136-145); Total Protein 6.4 g/dL (6.4-8.9); eGFR For African Americans 50 (> 60); eGFR For Non-African Americans 42 (> 60)
[2021-09-29 04:10] LABS: Bilirubin,Urine Negative (Negative); Blood,Urine Small (Negative); Clarity,Urine Clear (Clear); Color,Urine Yellow (Yellow); Glucose,Urine (UA) Normal (Normal); Ketones,Urine Negative (Negative); Leukocyte Esterase,Urine Moderate (Negative); Mucus,Urine Few per lpf (None-Few); Nitrite,Urine Negative (Negative); Protein,Urine 70 mg/dL (Neg-Trace); Specific Gravity,Urine 1.025 (1.010-1.025); Squamous Epithelial Cell,Urine Few per hpf (None-Few); Urobilinogen,Urine Normal (Normal)
[2021-09-29] MEDS: *HR* Heparin 5,000 UNIT/ML VIAL SQ SCH ×2 (06:45→18:14)
[2021-09-29] MEDS: 0.9 % Sodium Chloride 1,000 ML IVC SCH (07:55)
[2021-09-29] MEDS: Aspirin 81 MG TAB.CHEW PO SCH (09:48)
[2021-09-29] MEDS: cefTRIAXone 1,000 MG in 0.9 % Sodium Chloride Mini Bag 100 ML IVPB SCH (09:49)
[2021-09-29] MEDS: Metoprolol XL (24 HR) Succ 25 MG TAB.ER.24H PO SCH (14:05)
[2021-09-30 05:51] LABS: Basophils % 0.6 %; Immature Granulocytes % 0.4 % (0-4); Mean Corpuscular Volume 97.5 fL (83.0-100.0); Platelet Count 129 K/mcL (140-400); Red Cell Distribution Width 13.2 % (11.5-14.5); Segmented Neutrophils % 65.7 %
[2021-09-30 05:53] LABS: Eosinophils # 0.2 K/mcL (0.0-0.6); Hematocrit 38.8 % (37.5-50.1); Hemoglobin 13.2 g/dL (12.9-16.9); Lymphocytes # 0.6 K/mcL (0.6-4.6); Lymphocytes % 13.6 %; Mean Corpuscular Hemoglobin 33.2 pg (28.0-33.3); Mean Platelet Volume 10.8 fL (9.4-12.4); Monocytes # 0.7 K/mcL (0.0-1.3); Monocytes % 14.7 %; Red Blood Count 3.98 M/mcL (4.19-5.50); White Blood Count 4.6 K/mcL (4.3-11.1)
[2021-09-30] MEDS: *HR* Heparin 5,000 UNIT/ML VIAL SQ SCH ×2 (06:06→18:07)
[2021-09-30 06:13] LABS: Alanine Aminotransferase 4 Units/L (7-52); Albumin 3.6 g/dL (3.5-5.7); Albumin/Globulin Ratio 1.2 (1.1-2.2); Alkaline Phosphatase 64 Units/L (34-104); Aspartate Amino Transferase 16 Units/L (13-39); BUN/Creatinine Ratio 15 (6-26); Bilirubin,Total 0.6 mg/dL (0.3-1.0); Blood Urea Nitrogen 20 mg/dL (8-23); Calcium 7.3 mg/dL (8.6-10.3); Carbon Dioxide 18 mEq/L (23-29); Chloride 112 mEq/L (98-107); Glucose 100 mg/dL (70-105); Osmolality,Calculated 291 (280-300); Sodium 139 mEq/L (136-145); Total Protein 6.6 g/dL (6.4-8.9); eGFR For African Americans > 60 (> 60); eGFR For Non-African Americans 52 (> 60)
[2021-09-30] MEDS: Aspirin 81 MG TAB.CHEW PO SCH (10:01)
[2021-09-30] MEDS: cefTRIAXone 1,000 MG in 0.9 % Sodium Chloride Mini Bag 100 ML IVPB SCH (10:01)
[2021-09-30] MEDS: Carbidopa/Levodopa 25/100 TABLET PO SCH ×2 (10:01→19:44)
[2021-09-30] MEDS: Metoprolol XL (24 HR) Succ 25 MG TAB.ER.24H PO SCH (10:01)
[2021-10-01 02:19] LABS: Basophils % 0.5 %; Eosinophils # 0.3 K/mcL (0.0-0.6); Eosinophils % 6.4 %; Hemoglobin 12.7 g/dL (12.9-16.9); Immature Granulocytes % 0.2 % (0-4); Immature Platelets 3.7 % (1.1-6.1); Lymphocytes # 0.8 K/mcL (0.6-4.6); Lymphocytes % 18.3 %; Mean Corpuscular HGB Conc 33.4 g/dL (31.6-35.5); Mean Corpuscular Hemoglobin 33.1 pg (28.0-33.3); Mean Platelet Volume 10.5 fL (9.4-12.4); Monocytes # 0.6 K/mcL (0.0-1.3); Monocytes % 13.7 %; Neutrophils # 2.7 K/mcL (1.6-8.9); Platelet Count 120 K/mcL (140-400); Red Blood Count 3.84 M/mcL (4.19-5.50); Red Cell Distribution Width 13.2 % (11.5-14.5); Segmented Neutrophils % 60.9 %; White Blood Count 4.4 K/mcL (4.3-11.1)
[2021-10-01 02:37] LABS: Alanine Aminotransferase < 3 Units/L (7-52); Albumin 3.5 g/dL (3.5-5.7); Albumin/Globulin Ratio 1.2 (1.1-2.2); Alkaline Phosphatase 60 Units/L (34-104); Aspartate Amino Transferase 16 Units/L (13-39); BUN/Creatinine Ratio 16 (6-26); Bilirubin,Total 0.6 mg/dL (0.3-1.0); Blood Urea Nitrogen 21 mg/dL (8-23); Calcium 7.2 mg/dL (8.6-10.3); Carbon Dioxide 18 mEq/L (23-29); Chloride 109 mEq/L (98-107); Glucose 93 mg/dL (70-105); Osmolality,Calculated 279 (280-300); Potassium 4.2 mEq/L (3.5-5.1); Sodium 133 mEq/L (136-145); Total Protein 6.5 g/dL (6.4-8.9); eGFR For African Americans > 60 (> 60); eGFR For Non-African Americans 52 (> 60)
[2021-10-01] MEDS: *HR* Heparin 5,000 UNIT/ML VIAL SQ SCH (06:00)
[2021-10-01] MEDS: Metoprolol XL (24 HR) Succ 25 MG TAB.ER.24H PO SCH (08:16)
[2021-10-01] MEDS: Aspirin 81 MG TAB.CHEW PO SCH (08:16)
[2021-10-01] MEDS: Carbidopa/Levodopa 25/100 TABLET PO SCH (08:16)
[2021-10-01 11:18] VITALS: TEMP 97.6
[2021-10-01] MEDS ORDERED: Haloperidol Lactate 5 MG/ML VIAL IVP PRN (12:12)
[2021-10-01 14:52] VITALS: BP 137/83; PULSE 108; O2SAT 99
[2021-10-01 17:18] LABS: Adenovirus Not Detected (Not Detect); Bordetella Pertussis Not Detected (Not Detect); Chlamydophila pneumoniae Not Detected (Not Detect); Coronavirus 229E Not Detected (Not Detect); Coronavirus HKU1 Not Detected (Not Detect); Coronavirus NL63 Not Detected (Not Detect); Coronavirus OC43 Not Detected (Not Detect); Human Metapneumovirus Not Detected (Not Detect); Human Rhinovirus/Enterovirus DETECTED (Not Detect); Influenza A Subtype 2009 H1 Not Detected (Not Detect); Influenza B Not Detected (Not Detect); Mycoplasma pneumoniae Not Detected (Not Detect); Parainfluenza Virus 1 Not Detected (Not Detect); Parainfluenza Virus 2 Not Detected (Not Detect); Parainfluenza Virus 3 Not Detected (Not Detect); Parainfluenza Virus 4 Not Detected (Not Detect); Respiratory Syncytial Virus Not Detected (Not Detect); SARS-CoV-2 Not Detected (Not Detect)
[2021-10-01] MEDS ORDERED: QUEtiapine Fumarate 25 MG TABLET PO SCH (21:00)
== END 2021-10-01 18:16 | disposition home or self-care (01) ==
LOC: EMEROOARM 14:02 → 3ANU 14:02 → SUATTDRO 16:10 → 3ANU 17:19
PROVIDERS: ADMIT Internal Medicine; ATTEND Registered Nurse

== ENCOUNTER 2022-04-04 15:09 | Observation (INO) ==
[2022-04-04] MEDS ORDERED: Iopamidol - 370 500 ML MLS IVP ONE (15:17)
[2022-04-04 15:47] LABS: Hematocrit 35.9 % (37.5-50.1); Hemoglobin 12.1 g/dL (12.9-16.9); Mean Corpuscular HGB Conc 33.7 g/dL (31.6-35.5); Mean Corpuscular Hemoglobin 33.2 pg (28.0-33.3); Mean Corpuscular Volume 98.4 fL (83.0-100.0); Platelet Count 144 K/mcL (140-400); Red Blood Count 3.65 M/mcL (4.19-5.50); Red Cell Distribution Width 13.5 % (11.5-14.5); White Blood Count 12.7 K/mcL (4.3-11.1)
[2022-04-04 15:54] LABS: INR 1.2; Prothrombin Time 13.5 Seconds (9.4-12.1)
[2022-04-04 15:56] LABS: Activated Partial Thrombo Time 26.8 Seconds (26.0-36.0)
[2022-04-04 16:24] LABS: BUN/Creatinine Ratio 18 (6-26); Blood Urea Nitrogen 33 mg/dL (8-23); Carbon Dioxide 23 mEq/L (23-29); Chloride 104 mEq/L (98-107); Glucose 106 mg/dL (70-105); Osmolality,Calculated 284 (280-300); Potassium 4.6 mEq/L (3.5-5.1); Sodium 133 mEq/L (136-145); eGFR For African Americans 42 (> 60); eGFR For Non-African Americans 35 (> 60)
[2022-04-04 16:26] LABS: Troponin I < 0.03 ng/mL (< 0.04)
[2022-04-04] MEDS ORDERED: 0.9 % Sodium Chloride 1,000 ML IV ONE (16:41)
[2022-04-04 19:06] LABS: Bilirubin,Urine Negative (Negative); Blood,Urine Small (Negative); Clarity,Urine Clear (Clear); Color,Urine Light-Yellow (Yellow); Glucose,Urine (UA) Normal (Normal); Ketones,Urine Negative (Negative); Leukocyte Esterase,Urine Negative (Negative); Mucus,Urine Few per lpf (None-Few); Nitrite,Urine Negative (Negative); Protein,Urine 70 mg/dL (Neg-Trace); Specific Gravity,Urine > 1.030 (1.010-1.025); Squamous Epithelial Cell,Urine Few per hpf (None-Few); Urobilinogen,Urine Normal (Normal)
[2022-04-04] MEDS ORDERED: Ringers Solution, Lactated 1,000 ML IVC ONE (19:19)
[2022-04-04] MEDS ORDERED: 0.9 % Sodium Chloride 1,000 ML IVC ONE (19:20)
[2022-04-04] MEDS ORDERED: Perflutren Lipid Microsphere 1.3 ML in 0.9 % Sodium Chloride 8.7 ML IVP PRN (19:35)
[2022-04-04] MEDS ORDERED: Melatonin 3 MG TABLET PO PRN (19:40)
[2022-04-04] MEDS ORDERED: Naloxone 0.4 MG/ML INJ IVP PRN (19:40)
[2022-04-04] MEDS ORDERED: Ondansetron ODT 4 MG TAB.RAPDIS SL PRN (19:40)
[2022-04-04] MEDS ORDERED: *HR* HYDROcodone/Acet 5/325 mg TABLET PO PRN (19:40)
[2022-04-04] MEDS ORDERED: Acetaminophen 325 MG TABLET PO PRN (19:40)
[2022-04-04] MEDS ORDERED: *HR* OxyCODONE Immed Rel 5 MG TABLET PO PRN (19:40)
[2022-04-04 21:44] LABS: Basophils % 0.2 %; Eosinophils % 0.3 %; Hematocrit 35.3 % (37.5-50.1); Hemoglobin 11.9 g/dL (12.9-16.9); Immature Granulocytes % 0.3 % (0-4); Lymphocytes # 0.7 K/mcL (0.6-4.6); Lymphocytes % 6.8 %; Mean Corpuscular HGB Conc 33.7 g/dL (31.6-35.5); Mean Corpuscular Hemoglobin 33.1 pg (28.0-33.3); Mean Corpuscular Volume 98.1 fL (83.0-100.0); Mean Platelet Volume 10.2 fL (9.4-12.4); Monocytes # 1.6 K/mcL (0.0-1.3); Monocytes % 14.9 %; Neutrophils # 8.2 K/mcL (1.6-8.9); Platelet Count 134 K/mcL (140-400); Red Cell Distribution Width 13.5 % (11.5-14.5); Segmented Neutrophils % 77.5 %; White Blood Count 10.6 K/mcL (4.3-11.1)
[2022-04-04] MEDS: QUEtiapine Fumarate 25 MG TABLET PO SCH (22:24)
[2022-04-05 01:47] LABS: INR 1.2; Prothrombin Time 13.7 Seconds (9.4-12.1)
[2022-04-05 01:53] LABS: Magnesium 1.3 mg/dL (1.6-2.6); Phosphorous 2.4 mg/dL (2.7-4.5)
[2022-04-05 02:15] LABS: Folate 12.3 ng/mL (3.0-16.0)
[2022-04-05 02:17] LABS: Thyroid Stimulating Hormone 0.418 mcIU/mL (0.340-5.600); Troponin I < 0.03 ng/mL (< 0.04)
[2022-04-05 02:35] LABS: Alanine Aminotransferase 6 Units/L (7-52); Albumin 3.3 g/dL (3.5-5.7); Albumin/Globulin Ratio 1.2 (1.1-2.2); Alkaline Phosphatase 55 Units/L (34-104); Aspartate Amino Transferase 17 Units/L (13-39); BUN/Creatinine Ratio 17 (6-26); Bilirubin,Total 0.7 mg/dL (0.3-1.0); Blood Urea Nitrogen 27 mg/dL (8-23); Calcium 7.5 mg/dL (8.6-10.3); Carbon Dioxide 13 mEq/L (23-29); Chloride 112 mEq/L (98-107); Chol/HDL Ratio 2.1 (0-4.9); Cholesterol 99 mg/dL (< 200); Globulin 2.7 g/dL (2.4-3.5); Glucose 99 mg/dL (70-105); HDL Cholesterol 47 mg/dL (40-59); LDL Cholesterol,Calculated 42 mg/dL (< 100); Osmolality,Calculated 289 (280-300); Potassium 4.3 mEq/L (3.5-5.1); Sodium 137 mEq/L (136-145); Triglycerides 48 mg/dL (< 150); eGFR For African Americans 49 (> 60); eGFR For Non-African Americans 40 (> 60)
[2022-04-05] MEDS: Carbidopa/Levodopa 25/100 TABLET PO SCH ×2 (08:26→12:03)
[2022-04-05] MEDS: Aspirin Enteric Coated 81 MG Tablet PO SCH (08:26)
[2022-04-05 11:12] LABS: Estimated Average Glucose 117 mg/dl; Hemoglobin A1C 5.7 %
[2022-04-05] MEDS: QUEtiapine Fumarate 25 MG TABLET PO SCH (20:51)
[2022-04-05] MEDS ORDERED: LOVASTATIN 40 MG PO SCH (21:00)
[2022-04-06] MEDS ORDERED: *HR* Enoxaparin 40 MG/0.4 ML SYRINGE SQ SCH (06:00)
[2022-04-06] MEDS: Carbidopa/Levodopa 25/100 TABLET PO SCH ×2 (09:29→12:46)
[2022-04-06] MEDS: Aspirin Enteric Coated 81 MG Tablet PO SCH (09:29)
[2022-04-06 10:57] VITALS: BP 90/59; PULSE 61; TEMP 97.4; O2SAT 95
== END 2022-04-06 14:51 | disposition home health service (06) ==
LOC: EMEROOARM 15:09 → 3BNU 15:09 → SUATTDRO 19:58 → 3BNU 21:02
PROVIDERS: ADMIT Internal Medicine; ATTEND Internal Medicine

== ENCOUNTER 2022-06-29 08:09 | Observation (INO) ==
[2022-06-29 08:55] LABS: Bacteria,Urine Few per hpf (None-Few); Bilirubin,Urine Negative (Negative); Blood,Urine Small (Negative); Clarity,Urine Clear (Clear); Color,Urine Light-Yellow (Yellow); Glucose,Urine (UA) Normal (Normal); Ketones,Urine Negative (Negative); Leukocyte Esterase,Urine Trace (Negative); Mucus,Urine Few per lpf (None-Few); Nitrite,Urine Negative (Negative); PH,Urine 6.5 pH Units (5.0-8.0); Protein,Urine 100 mg/dL (Neg-Trace); Specific Gravity,Urine 1.019 (1.010-1.025); Squamous Epithelial Cell,Urine Few per hpf (None-Few); Urobilinogen,Urine Normal (Normal)
[2022-06-29 08:58] LABS: Basophils % 0.3 %; Eosinophils % 0.3 %; Hematocrit 33.1 % (37.5-50.1); Hemoglobin 11.1 g/dL (12.9-16.9); Immature Granulocytes % 0.3 % (0-4); Lymphocytes # 0.3 K/mcL (0.6-4.6); Lymphocytes % 4.5 %; Mean Corpuscular HGB Conc 33.5 g/dL (31.6-35.5); Mean Corpuscular Hemoglobin 32.6 pg (28.0-33.3); Mean Corpuscular Volume 97.4 fL (83.0-100.0); Mean Platelet Volume 10.1 fL (9.4-12.4); Monocytes # 0.9 K/mcL (0.0-1.3); Monocytes % 15.2 %; Neutrophils # 4.9 K/mcL (1.6-8.9); Platelet Count 119 K/mcL (140-400); Red Cell Distribution Width 13.3 % (11.5-14.5); Segmented Neutrophils % 79.4 %; White Blood Count 6.2 K/mcL (4.3-11.1)
[2022-06-29 09:30] LABS: Calcium 7.7 mg/dL (8.6-10.3); Influenza A PCR Negative (Negative); Influenza B PCR Negative (Negative); Potassium 4.2 mEq/L (3.5-5.1); Resp. Syncytial Virus PCR Negative (Negative)
[2022-06-29 09:37] LABS: SARS-CoV-2 by PCR (In House) Negative (Negative)
[2022-06-29] MEDS ORDERED: cefTRIAXone 1,000 MG in 0.9 % Sodium Chloride 10 ML IVP ONE (10:13)
[2022-06-29] MEDS ORDERED: Azithromycin 500 MG in 0.9 % Sodium Chloride 250 ML IVPB ONE (10:14)
[2022-06-29] MEDS ORDERED: Naloxone 0.4 MG/ML INJ IVP PRN (11:16)
[2022-06-29] MEDS ORDERED: 0.9 % Sodium Chloride 1,000 ML IVC SCH (12:45)
[2022-06-29 17:50] LABS: Adenovirus Not Detected (Not Detect); Bordetella Pertussis Not Detected (Not Detect); Chlamydophila pneumoniae Not Detected (Not Detect); Coronavirus 229E Not Detected (Not Detect); Coronavirus HKU1 Not Detected (Not Detect); Coronavirus NL63 Not Detected (Not Detect); Coronavirus OC43 Not Detected (Not Detect); Human Metapneumovirus Not Detected (Not Detect); Human Rhinovirus/Enterovirus Not Detected (Not Detect); Influenza A Subtype 2009 H1 Not Detected (Not Detect); Influenza B Not Detected (Not Detect); Mycoplasma pneumoniae Not Detected (Not Detect); Parainfluenza Virus 1 Not Detected (Not Detect); Parainfluenza Virus 2 Not Detected (Not Detect); Parainfluenza Virus 3 Not Detected (Not Detect); Parainfluenza Virus 4 Not Detected (Not Detect); Respiratory Syncytial Virus Not Detected (Not Detect); SARS-CoV-2 Not Detected (Not Detect)
[2022-06-29] MEDS ORDERED: Benzonatate 100 MG CAPSULE PO PRN (17:51)
[2022-06-29] MEDS: QUEtiapine Fumarate 25 MG TABLET PO SCH (20:27)
[2022-06-29] MEDS ORDERED: *HR* Metoprolol 5 MG/5 ML VIAL IVP PRN (23:50)
[2022-06-30 05:22] LABS: Basophils % 0.4 %; Eosinophils # 0.1 K/mcL (0.0-0.6); Eosinophils % 2.4 %; Hematocrit 31.3 % (37.5-50.1); Hemoglobin 10.4 g/dL (12.9-16.9); Immature Granulocytes % 0.2 % (0-4); Lymphocytes # 0.7 K/mcL (0.6-4.6); Lymphocytes % 13.2 %; Mean Corpuscular HGB Conc 33.2 g/dL (31.6-35.5); Mean Corpuscular Hemoglobin 32.9 pg (28.0-33.3); Mean Corpuscular Volume 99.1 fL (83.0-100.0); Mean Platelet Volume 10.3 fL (9.4-12.4); Monocytes % 20.2 %; Neutrophils # 3.1 K/mcL (1.6-8.9); Platelet Count 103 K/mcL (140-400); Red Blood Count 3.16 M/mcL (4.19-5.50); Red Cell Distribution Width 13.5 % (11.5-14.5); Segmented Neutrophils % 63.6 %; White Blood Count 4.9 K/mcL (4.3-11.1)
[2022-06-30 05:37] LABS: Calcium 6.9 mg/dL (8.6-10.3); Potassium 3.7 mEq/L (3.5-5.1)
[2022-06-30] MEDS: Cyanocobalamin (B-12) 1,000 MCG TABLET PO SCH (09:36)
[2022-06-30] MEDS: Carbidopa/Levodopa 25/100 TABLET PO SCH ×2 (09:36→12:10)
[2022-06-30] MEDS: Metoprolol XL (24 HR) Succ 25 MG TAB.ER.24H PO SCH (09:37)
[2022-06-30] MEDS: cefTRIAXone 2,000 MG in 0.9 % Sodium Chloride 20 ML IVP SCH (09:37)
[2022-06-30] MEDS: Azithromycin 500 MG in 0.9 % Sodium Chloride 250 ML IVPB SCH (09:39)
[2022-06-30] MEDS: *HR* Heparin 5,000 UNIT/ML VIAL SQ SCH ×2 (14:45→20:41)
[2022-06-30] MEDS: QUEtiapine Fumarate 25 MG TABLET PO SCH (20:40)
[2022-07-01 02:46] LABS: Hematocrit 32.4 % (37.5-50.1); Hemoglobin 10.5 g/dL (12.9-16.9); Mean Corpuscular HGB Conc 32.4 g/dL (31.6-35.5); Mean Corpuscular Hemoglobin 31.9 pg (28.0-33.3); Mean Corpuscular Volume 98.5 fL (83.0-100.0); Mean Platelet Volume 10.6 fL (9.4-12.4); Platelet Count 104 K/mcL (140-400); Red Blood Count 3.29 M/mcL (4.19-5.50); Red Cell Distribution Width 13.4 % (11.5-14.5); White Blood Count 4.6 K/mcL (4.3-11.1)
[2022-07-01 03:11] LABS: Calcium 7.2 mg/dL (8.6-10.3); Potassium 4.3 mEq/L (3.5-5.1)
[2022-07-01] MEDS: *HR* Heparin 5,000 UNIT/ML VIAL SQ SCH (06:06)
[2022-07-01 06:51] VITALS: BP 135/83; PULSE 87; TEMP 98.6; O2SAT 95
[2022-07-01] MEDS: cefTRIAXone 2,000 MG in 0.9 % Sodium Chloride 20 ML IVP SCH (09:00)
[2022-07-01] MEDS: Cyanocobalamin (B-12) 1,000 MCG TABLET PO SCH (09:01)
[2022-07-01] MEDS: Carbidopa/Levodopa 25/100 TABLET PO SCH ×2 (09:01→11:12)
[2022-07-01] MEDS: Azithromycin 500 MG in 0.9 % Sodium Chloride 250 ML IVPB SCH (09:02)
[2022-07-01] MEDS: Metoprolol XL (24 HR) Succ 25 MG TAB.ER.24H PO SCH (09:02)
== END 2022-07-01 11:41 | disposition other institution (70) ==
LOC: 2ANU 08:09 → EMEROOARM 08:09 → SUATTDRO 11:01 → 2ANU 12:09
PROVIDERS: ADMIT Internal Medicine; ATTEND Internal Medicine